=== PATIENT | female | born 1990 | race Caucasian/White ===

== ENCOUNTER 2023-03-16 05:28 | Emergency (ER) | payer SELFPAY ==
[~2023-03-16] VITALS: Ht 160 cm; Wt 68.0 kg
[2023-03-16 05:51] VITALS: O2SAT 100
[2023-03-16] MEDS ORDERED: IBUPROFEN 800MG TABLET PO ONE (06:45)
[2023-03-16] MEDS ORDERED: IBUPROFEN 400MG TABLET PO SCH (07:00)
[2023-03-16] MEDS ORDERED: IBUP-2028 PO (08:04)
[2023-03-16 08:43] VITALS: BP 122/91; PULSE 86; RESP 18; TEMP 98.9
== END 2023-03-16 09:14 | disposition home or self-care (01) ==
LOC: ER 05:28
DX: S93.402A Sprain of unspecified ligament of left ankle, initial encounter (principal); S70.212A Abrasion, left hip, initial encounter; Z88.1 Allergy status to other antibiotic agents; Z98.890 Other specified postprocedural states; W13.8XXA Fall from, out of or through other building or structure, initial encounter; Y93.89 Activity, other specified; Y92.89 Other specified places as the place of occurrence of the external cause; Y99.8 Other external cause status
CPT/HCPCS: 81025; 73501; 73600; 99284; Z7610